=== PATIENT | female | born 1970 | race Caucasian/White ===

== ENCOUNTER 2020-04-20 13:49 | Emergency (ER) | payer OTHER ==
[~2020-04-20] VITALS: Ht 157.4 cm; Wt 72.6 kg
[2020-04-20 16:32] LABS: BILIRUBIN NEGATIVE (NEGATIVE); BLOOD NEGATIVE (NEGATIVE); CLARITY CLEAR (CLEAR); COLOR YELLOW (YELLOW); GLUCOSE NEGATIVE (NEGATIVE); KETONE NEGATIVE (NEGATIVE); LEUKO ESTERASE NEGATIVE (NEGATIVE); MUCOUS TRACE; NITRITE NEGATIVE (NEGATIVE); RBC 0-2 rbc/hpf (0-2); UROBILINOGEN 0.2 E.U./dl (0.2-1.0); WBC 0-2 wbc/hpf (0-5)
== END 2020-04-20 16:41 | disposition home or self-care (01) ==
LOC: ED 13:49
PROVIDERS: Emergency Medicine
DX: S92.321A Displaced fracture of second metatarsal bone, right foot, initial encounter for closed fracture (principal); S92.331A Displaced fracture of third metatarsal bone, right foot, initial encounter for closed fracture; S92.341A Displaced fracture of fourth metatarsal bone, right foot, initial encounter for closed fracture; Z88.1 Allergy status to other antibiotic agents; V59.49XA Driver of pick-up truck or van injured in collision with other motor vehicles in traffic accident, initial encounter; Y93.89 Activity, other specified; Y92.89 Other specified places as the place of occurrence of the external cause; Y99.8 Other external cause status